=== PATIENT | female | born 1940 | race Two or more races ===

== ENCOUNTER 2024-09-14 11:48 | Emergency (ER) | payer MEDICARE, MEDICAID, SELFPAY ==
[2024-09-14 12:02] VITALS: BP 170/78; PULSE 71; RESP 17; TEMP 36.6; O2SAT 99; BMI 23.4
--- NOTE | 2024-09-14 12:25 | XR_ITS ---
Examination: CT middle inner ear, without contrast. 2-D coronal reconstructions. 2-D sagittal reconstructions. Date and time of exam: September 14, 2024 1324 hours INDICATIONS: Right ear pain beginning 2 days ago CTDI: vol (mGy): 14.3 DLP: (mGycm):164 Technique: Multiple 1.0 mm axial sections of the middle inner ears bilaterally. High-resolution 64 slice scanner utilized. 2-D coronal reconstructions 2-D sagittal reconstructions Low dose protocols were performed. One or more of the following dose reduction techniques were used; automated exposure control, adjustment of the mA and/or KV according to patient size, use of iterative reconstruction technique. Findings: Axial sections of the right demonstrate severely reduced mastoid aeration. Acute right mastoiditis Jugular fossa and carotid canal do not appear remarkable. No deformity of the ossicles. Porus acusticus internus does not exhibit erosion. Cochlear apparatus unremarkable. Semicircular canals normal. Right otitis media. Coronal reconstructions demonstrate no erosion of the scutum. Soft tissue mass in the attic or Prussak's space is depicted Ossicular mass intact. Axial sections of the left demonstrate severely reduced mastoid aeration. Jugular fossa and carotid canal do not appear remarkable. No deformity of the ossicles. Porus acusticus internus does not exhibit erosion. Cochlear apparatus unremarkable. Semicircular canals normal. External auditory canal open Coronal reconstructions demonstrate no erosion of the scutum. No soft tissue mass in the attic or Prussak's space is seen. Ossicular mass intact. Roof of the mastoid air cells appear intact bilaterally. Impression: Bilateral chronic mastoiditis Acute right mastoiditis Right otitis media Soft tissue in the right attic or Prussak's space consistent with acquired cholesteatoma Suggest elective MRI brain follow-up pre and postcontrast
--- NOTE | 2024-09-14 12:28 | PD.EDEAR ---
ED Ear RME/HPI General Chief complaint: Ear Stated complaint: RIGHT EAR PAIN FOR 4 DAYS Time Seen by Provider: 09/14/24 12:00 Arrival date/time: 09/14/24 11:48 RME / HPI RME / HPI Narrative: 84-year-old female patient with significant history of hypertension, was brought in by family for evaluation regarding worsening right ear ache. Patient has been having worsening right earache for the last 4 days, described as pulsating, radiating to the back of the ear. Severity of symptoms moderate. Patient was seen by PCP, and currently taking Augmentin and ciprofloxacin eardrops for the last 2 days. According to the family and patient pain is getting worse. Denies any fever denies any other complaints no medication was taken prior to arrival Related Data Home Medications ?Medication ?Instructions ?Recorded ?Confirmed nitroglycerin 0.3 mg sublingual 0.3 mg buccal Q5MIN PRN Chest Pain 02/11/19 02/11/19 tablet amlodipine 10 mg tablet 10 mg PO QDAY 01/07/22 01/07/22 aspirin 325 mg tablet 325 mg PO QDAY 01/07/22 01/07/22 atorvastatin 80 mg tablet 80 mg PO QDAY 01/07/22 01/07/22 lisinopril 40 mg tablet 40 mg PO QDAY 01/07/22 01/07/22 Previous Rx's ?Medication ?Instructions ?Recorded hydrocodone 5 mg-acetaminophen 300 1 tab PO Q4H PRN pain #10 tabs 02/11/19 mg tablet (Vicodin) acetaminophen 300 mg-codeine 30 mg 1 tab PO TID PRN pain #20 tabs 09/14/24 tablet acetaminophen 300 mg-codeine 30 mg 1 tab PO TID PRN pain #20 tabs 09/14/24 tablet cefdinir 300 mg capsule 300 mg PO BID #14 caps 09/14/24 Allergies Allergy/AdvReac Type Severity Reaction Status Date / Time ibuprofen Allergy Severe Abdominal Verified 09/14/24 11:51 Pain Penicillins Allergy Severe UNKNOWN Verified 09/14/24 11:51 codeine AdvReac Severe ABD PAIN, Verified 09/14/24 11:51 NAUSEA Review of Systems Review of Systems Narrative Review of Systems: Review of system reviewed and within normal limits except mentioned in HPI ED Exam Narrative Physical exam: VITAL SIGNS: Reviewed. GENERAL APPEARANCE: Alert and interactive, follows commands, no acute distress, HEAD AND FACE: Non-traumatic. ENT: PERRL, pink conjunctivitis, eyelid no trauma, Mucous membrane moist. Right tympanic membrane with erythema bulging and tender left tympanic membrane erythema no bulging nontender, tenderness to the posterior auricular area on palpation, no redness noted but mild swelling noted, nonfluctuant, no protrusion of the pinna, no sagging of the ear canal, no skin breakdown noted, no tenderness noted on the left posterior auricular area NECK: Supple, nontender, no nuchal rigidity. CHEST: No tenderness, no crepitus, no paradoxical movement, no retractions. LUNGS: Clear, well ventilated, symmetric, no rales, no wheezing, no ronchi, no stridor, good breath sounds bilaterally. HEART: Regular rate, regular rhythm, no murmur, no gallops. ABDOMEN: Soft, positive bowel sounds, nondistended, no guarding, nontender, no rebound, no masses, RECTAL: Deferred. GENITAL: Deferred. NEUROLOGICAL: Gross motor function intact sensory function intact, Appropriate for age. MUSCULOSKELETAL: low back nontender, full range of motion. EXTREMITIES: Nontender, full range of motion. SKIN: Color pink, dry, no rash, no lacerations, no abrasions, no contusions. LYMPHATICS: Deferred. Course Quality Measures none Orders Category Date Time Status Referral - [facility] Tender Stat Cons 09/14/24 14:59 Active Transfer to another facility [Transfer/Discharge] Discharge 09/14/[address] ear mid-inner wo Stat Exams 09/14/24 12:25 Completed Blood Culture (Lab) Stat Lab 09/14/24 15:15 Received CBC [CBC] Stat Lab 09/14/24 15:15 Completed CMP [Comprehensive Metabolic Panel] Stat Lab 09/14/24 15:15 Completed Lactate (Lactic Acid) Stat Lab 09/14/24 15:15 Completed PTT [Partial Thromboplastin Time] Stat Lab 09/14/24 15:15 Completed Procalcitonin Stat Lab 09/14/24 15:15 Completed HYDROcodone*/APAP 5/325 [[place] 5/325] Med 09/14/24 12:27 Discontinued 1 tab PO X1 ONE HYDROmorphone INJ [Dilaudid Inj] Med 09/14/24 15:21 Discontinued 0.5 mg IVP X1 ONE Ondansetron Inj [Zofran Inj] Med 09/14/24 17:12 Discontinued 4 mg IV X1 ONE cefTAZidime 2 gm Med 09/14/24 14:41 Discontinued Sodium Chloride 0.9% [Ns] 50 ml IV X1 cefTRIAXone/D5w 1gm IV premix [Rocephin/D5w 1gm IV Med 09/14/24 14:39 Discontinued premix] 50 ml IV X1 cloNIDine HCL [Catapres] Med 09/14/24 19:43 Discontinued 0.2 mg PO X1 ONE Vital Signs Vital signs: Vital Signs Temperature 97.8 F 09/14/24 12:02 Pulse Rate 71 09/14/24 12:02 Respiratory Rate 17 09/14/24 12:02 Blood Pressure 170/78 H 09/14/24 12:02 Pulse Oximetry (%) 99 09/14/24 12:02 Oxygen Delivery Method Room Air 09/14/24 12:02 Ear MDM Narrative MDM Narrative:: 84-year-old female patient with significant history of hypertension, was brought in by family for evaluation regarding worsening right ear ache. Patient has been having worsening right earache for the last 4 days, described as pulsating, radiating to the back of the ear. Severity of symptoms moderate. Patient was seen by PCP, and currently taking Augmentin and ciprofloxacin eardrops for the last 2 days. According to the family and patient pain is getting worse. Denies any fever denies any other complaints no medication was taken prior to arrival CT scan of the ears showed acute mastoiditis, with cholesteatoma. Laboratory workup all came back unremarkable. Spoke with transfer center from [facility] and told me that patient is stable to be discharged home with cefdinir and follow-up in the clinic of Dr Pagan this September 21, 2024 at 1300 Patient data External records reviewed:: None Clinical information provided by:: patient Social determinants that could affect healthcare access:: none Patient has the following chronic illnesses:: Hypertension How is presenting disease/condition affected by chronic disease/condition?: no chronic disease Evaluation data The following diagnostics were reviewed and interpreted by me:: lab results and radiology exam(s) Lab and/or radiology exams considered but not ordered:: None Interpretation Summary: CT scan of the ears showed acute mastoiditis, with cholesteatoma. Laboratory workup all came back unremarkable. Medications / Prescriptions Medications or Prescriptions considered but not ordered:: None Medication administrations:: Medication Administration History Discontinued Medications Hydrocodone Bitart/Acetaminophen (Hydrocodone/Apap 5/325 Tablet) 1 tab PO X1 ONE Stop: 09/14/24 12:28 Last Admin: 09/14/24 12:41 Dose: 1 tab Documented By: ALINA Clonidine (Clonidine Hcl 0.1 Mg Tablet) 0.2 mg PO X1 ONE Stop: 09/14/24 19:44 Last Admin: 09/14/24 21:03 Dose: Not Given Documented By: ALINA Non-Admin Reason: Cancelled by Provider Hydromorphone HCl (Hydromorphone Inj 2 Mg/Ml Vial) 0.5 mg IVP X1 ONE Stop: 09/14/24 15:22 Last Admin: 09/14/24 15:26 Dose: 0.5 mg Documented By: STACEY Ceftriaxone Sodium/Dextrose (Rocephin/D5w 1gm Iv Premix) 50 mls @ 100 mls/hr IV X1 ONE Stop: 09/14/24 15:08 Last Admin: 09/14/24 15:53 Dose: Not Given Documented By: STACEY Non-Admin Reason: Cancelled by Provider Ceftazidime 2 gm/ Sodium (Chloride) 50 mls @ 100 mls/hr IV X1 ONE Stop: 09/14/24 15:10 Last Infusion: 09/14/24 16:48 Dose: Infused Documented By: Admin: 09/14/24 15:46 Dose: 100 mls/hr Documented By: STACEY Ondansetron HCl (Ondansetron Inj 2 Mg/Ml Inj 2 Ml) 4 mg IV X1 ONE; Protocol Stop: 09/14/24 17:13 Last Admin: 09/14/24 17:16 Dose: 4 mg Documented By: COURTNEY Extremities edema, Zofran, Dilaudid, and [place] Consultations Consultation(s) initiated? (list below): No Diagnosis Ear Differential Diagnosis: otitis externa, otitis media and other (Acute mastoiditis) Most likely diagnosis given after review of the tests above:: Acute mastoiditis, otitis media Admission Indicated Admission indicated?: not indicated Explain why admission is indicated or not indicated:: Stable for discharge Admission Request Was there a request for admission?: No Disposition Plan Disposition Plan: Discharge Discharge Attestation Discharge Attestation: The patient and all family members were given an opportunity to ask questions and understood the discharge instructions. Discharge instructions specifically effects, indications for sooner follow up or return to the emergency department, and the expected course of current diagnosis. Patient condition: Stable Medical Decision Making MDM Narrative MDM Narrative: 84-year-old female patient with significant history of hypertension, was brought in by family for evaluation regarding worsening right ear ache. Patient has been having worsening right earache for the last 4 days, described as pulsating, radiating to the back of the ear. Severity of symptoms moderate. Patient was seen by PCP, and currently taking Augmentin and ciprofloxacin eardrops for the last 2 days. According to the family and patient pain is getting worse. Denies any fever denies any other complaints no medication was taken prior to arrival Laboratory workup all came back unremarkable. CT scan of the right ear showed acute mastoiditis with cholesteatoma Patient was given ceftazidime IV. Was also given Dilaudid IV. Patient is to be transfer with ENT around. I spoke with transfer center from [facility] who recommends medical management with IV antibiotic for couple of days. Patient does not need surgical intervention at this time according to Dr. Elroy Ivey Lab Data 09/14/24 15:15 09/14/24 15:15 Labs: Lab Results 09/14/24 Range/Units 15:15 WBC 8.4 (3.6-11.0) Thou/mm3 RBC 5.04 (4.00-5.20) Miln/mm3 Hgb 15.6 (12.0-16.0) g/dL Hct 46.2 H (36.0-46.0) % MCV 92 (80-100) fL MCH 31.0 (25.0-35.0) pg MCHC 33.8 (31.0-37.0) g/dl RDW Std Deviation 45.3 (36.4-46.3) fL Plt Count 180 (140-440) Thou/mm3 Neut % (Auto) 44 (37-80) % Lymph % (Auto) 43 (10-50) % Cavalier % (Auto) 7 (0-12) % Eos % (Auto) 6 (0-10) % Baso % (Auto) 1 (0-2.5) % Neut # (Auto) 3.7 (1.8-7.7) Thou/mm3 Lymph # (Auto) 3.6 (1.0-4.8) Thou/mm3 Cavalier # (Auto) 0.6 (0.0-0.8) Thou/mm3 Eos # (Auto) 0.5 (0.0-0.5) Thou/mm3 Baso # (Auto) 0.1 (0.0-0.2) Thou/mm3 Immature Gran # (Auto) 0.02 H (0.00-0.00) Thou/mm3 Absolute Nucleated RBC 0.00 (0.00-0.00) Thou/mm3 Immature Gran % 0 (0-0) % Nucleated RBC % 0 (0) /100 WBC APTT 28.9 (22.0-36.0) Seconds Sodium 136 (136-145) mMol/L Potassium 3.8 (3.4-5.1) mMol/L Chloride 103 (98-107) mMol/L Carbon Dioxide 24.8 (20.0-31.0) mMol/L Anion Gap 8 (7-16) BUN 23 (9-23) mg/dL Creatinine 1.2 (0.6-1.3) mg/dL Estim Creat Clear Calc 24.6 L (>60) mL/min eGFR 44 L (60 - ) See Note BUN/Creatinine Ratio 19 (12-20) Ratio Glucose 99 (74-106) mg/dL Calculated Osmolality 275 (275-295) Lactic Acid 1.2 (0.4-2.0) mMol/L Calcium 10.1 (8.3-10.6) mg/dL Corrected Calcium 10.1 (8.5-10.1) mg/dL Total Bilirubin 1.3 H (0.3-1.2) mg/dL AST 28 (0-34) U/L ALT 26 (10-49) U/L Alkaline Phosphatase 69 (46-116) U/L Total Protein 7.9 (5.7-8.2) gm/dL Albumin 5.3 H (3.4-4.8) gm/dL Globulin 2.6 (2.3-3.5) gm/dL Albumin/Globulin Ratio 2.0 (1.2-2.2) Procalcitonin 0.08 (0.0-0.49) ng/ml Discharge Plan Plan Patient Disposition: HOME (Self Care) Disposition Comment: stable Prescriptions/Referrals Prescriptions/Med Rec: New cefdinir 300 mg capsule 300 mg PO BID Qty: 14 0RF acetaminophen-codeine 300-30 mg tablet 1 tab PO TID PRN (Reason: pain) Qty: 20 0RF acetaminophen-codeine 300-30 mg tablet 1 tab PO TID PRN (Reason: pain) Qty: 20 0RF No Action nitroglycerin 0.3 mg Tablet, Sublingual 0.3 mg BUCCAL Q5MIN PRN (Reason: Chest Pain) hydrocodone-acetaminophen [Vicodin] 5-300 mg tablet 1 tab PO Q4H MDD 3 PRN (Reason: pain) Qty: 10 0RF atorvastatin 80 mg Tablet 80 mg PO QDAY aspirin 325 mg Tablet 325 mg PO QDAY amlodipine 10 mg Tablet 10 mg PO QDAY lisinopril 40 mg Tablet 40 mg PO QDAY Referrals: Arnaldo Linares [Primary Care Provider] - In 1 week Problem List Clinical Impression: Acute mastoiditis, Acute otitis media Patient/Caregiver Discharge Instructions Discharge Activity: activity as tolerated Education Materials: ED Otitis Media Antibiotic ... Additional Instructions: Thank you for the opportunity for serving you today. You are stable for discharged . You are advised to: Follow-up with Dr Pagan this August at [address] [place] [address], telephone #[phone] Return to ED for worsening of symptoms Increase oral fluids Take medication as prescribed Discontinue your Augmentin. Continue your ciprofloxacin otic drop Print Language: Latvian Stand Alone Forms: Maida Award Info., Patient Portal Info Letter JORDAN/LANCE Supervising Physician JORDAN/LANCE Supervising Physician: MD Camilo
[2024-09-14] MEDS: HYDROcodone/APAP 5/325 TABLET 1 TAB PO (12:41)
[2024-09-14 14:55] VITALS: BP 190/84; PULSE 68; RESP 26; TEMP 35.6; O2SAT 96
[2024-09-14 15:24] LABS: Lactate (Lactic Acid) 1.2 mMol/L (0.4-2.0)
[2024-09-14 15:26] LABS: Basophils # (Auto) 0.1 Thou/mm3 (0.0-0.2); Basophils % (Auto) 1 % (0-2.5); Eosinophils # (Auto) 0.5 Thou/mm3 (0.0-0.5); Eosinophils % (Auto) 6 % (0-10); Hematocrit 46.2 % (36.0-46.0); Hemoglobin 15.6 g/dL (12.0-16.0); Immature Granulocytes % (Auto) 0 % (0-0); Immature Granulocytes Auto 0.02 Thou/mm3 (0.00-0.00); Lymphocytes # (Auto) 3.6 Thou/mm3 (1.0-4.8); Lymphocytes % (Auto) 43 % (10-50); Mean Corpuscular HGB Conc 33.8 g/dl (31.0-37.0); Mean Corpuscular Volume 92 fL (80-100); Monocytes # (Auto) 0.6 Thou/mm3 (0.0-0.8); Monocytes % (Auto) 7 % (0-12); Neutrophils # (Auto) 3.7 Thou/mm3 (1.8-7.7); Neutrophils % (Auto) 44 % (37-80); Nucleated Red Blood Cell % 0 /100 WBC (0); Platelet Count 180 Thou/mm3 (140-440); RDW Standard Deviation 45.3 fL (36.4-46.3); Red Blood Count 5.04 Miln/mm3 (4.00-5.20); White Blood Count 8.4 Thou/mm3 (3.6-11.0)
[2024-09-14] MEDS: HYDROmorphone INJ 2 MG/ML VIAL 0.5 MG IVP (15:26)
--- NOTE | 2024-09-14 15:43 | PC.CM ---
Addendum entered by Efrem Hemphill RN 09/14/24 15:55: 1550-Call to [place] [facility] [place], provided clinicals and contact number for ER provider, she will connect with him and present case, awaiting response at this time. Original Note: 1521- Received call from Mirella Beck NP requesting transfer for ENT services, clinicals sent to [facility], [facility], and [facility]. Packet created and disc with imaging studies placed in packet.
[2024-09-14 15:46] LABS: Partial Thromboplastin Time 28.9 Seconds (22.0-36.0)
[2024-09-14] MEDS: cefTAZidime 2 GM in SODIUM CHLORIDE 0.9% 50 ML IV (15:46)
[2024-09-14 15:54] LABS: Alanine Aminotransferase 26 U/L (10-49); Albumin, Serum 5.3 gm/dL (3.4-4.8); Alkaline Phosphatase 69 U/L (46-116); Anion Gap 8 (7-16); Aspartate Amino Transferase 28 U/L (0-34); BUN/Creatinine Ratio 19 Ratio (12-20); Bilirubin,Total 1.3 mg/dL (0.3-1.2); Blood Urea Nitrogen 23 mg/dL (9-23); Calcium 10.1 mg/dL (8.3-10.6); Calcium (Corrected) 10.1 mg/dL (8.5-10.1); Carbon Dioxide 24.8 mMol/L (20.0-31.0); Chloride 103 mMol/L (98-107); Creatinine (Component) 1.2 mg/dL (0.6-1.3); Estimated Creatinine Clearance 24.6 mL/min (>60); Globulin 2.6 gm/dL (2.3-3.5); Glucose 99 mg/dL (74-106); Osmolality,Calculated 275 (275-295); Potassium 3.8 mMol/L (3.4-5.1); Procalcitonin 0.08 ng/ml (0.0-0.49); Sodium 136 mMol/L (136-145); Total Protein 7.9 gm/dL (5.7-8.2); eGFR 44 See Note
[2024-09-14] MEDS: ONDANSETRON INJ 2 MG/ML INJ 2 ML 4 MG IV (17:16)
--- NOTE | 2024-09-14 19:14 | PC.NURSE ---
SANDY FROM [facility] CALLED TO SPEAK WITH PROVIDER
--- NOTE | 2024-09-14 19:20 | PC.NURSE ---
JOE FROM [facility] CALLED TO FOLLOW UP ON STILL NEEDING TRANSFER, I TOLD THEM THAT YES WE WERE. SHE STATED THAT THEY HAVE HIGH CALL VOLUME AND THE TRANSFER NURSE WILL GET BACK TO US SOON POSSIBLE
--- NOTE | 2024-09-14 19:34 | PC.NURSE ---
Spoke with Karen from [facility], they do not have ENT services
[2024-09-14 19:48] VITALS: BP 144/61; PULSE 71; RESP 17; TEMP 36.5; O2SAT 95
[2024-09-14 20:21] VITALS: BP 109/50; PULSE 72; RESP 17; O2SAT 95
--- NOTE | 2024-09-14 20:30 | PC.NURSE ---
Pt resting quietly. states pain is mild. denies need for paain med.
--- NOTE | 2024-09-14 21:33 | EVENTNT_ITS ---
Documentation for date of: 09/14/24 Event Note Event Note: Patient is vietnamese speaking and interaction facilitated by register[employer] healthcare interpretor. Ms. Styles is an 84-year-old female with past medical history significant for bronchial asthma and complete heart block s/p pacemaker insertion [2018] presenting today with a chief complaint of bilateral ear pain worse in the right. Patient says that right [employer] acutely worsened about 2 days ago and has since been constant, associated with hearing loss and 10/10 pain. Yesterday she saw her PCP who prescribed p.o. Augmentin and ciprofloxacin eardrops. However her pain did not decrease after only 1 day of antibiotics. Therefore her family brought her into the ED for evaluation today. On arrival to the ED her vitals were within normal limits and her labs only significant for BUN 23, CR 1.2 [CKD stage IIIb] On exam both patient's ears were examined, tympanic membrane appeared white, fibrous and changes suggestive of chronic recurrent otitis media with effusion possible aspect of cholesteatoma. On orbital CT findings consistent with acute right mastoiditis as well as decreased left mastoid aeration. Initially the ED consulted us for admission for IV antibiotics according to curbside recommendations from ENT surgeon at [facility]. We suggested the contact Dr. Benites, ENT surgeon first to see if he would agree to consult on the patient, if he agrees and deemed the patient necessary for IV antibiotics we would admit. ED was unsuccessful in contacting Dr Benites, however they were eventually able to get in contact with ENT surgeon at [facility] who recommended outpatient p.o. antibiotics as well as pain control. We agree with the above-stated plan and if patient experiences any further deterioration of condition, persistent or worsening symptoms we recommend she either call her primary care doctor, shashi 911 or present to the emergency department if necessary. Plan of care discussed with Attending Dr. Mallika Dunaway MD PGY 1 I discussed the assessment and plan with the medicine team. I reviewed available medical records, imaging studies, laboratory results. I agree with the above subjective data, objective findings, assessment and plan END was contacted at [facility] who recommended to dc patient on po abxs apparently, so pt was dced from the ED
[2024-09-14 22:10] VITALS: BP 157/77; PULSE 79; RESP 17; TEMP 36.6; O2SAT 97
--- NOTE | 2024-09-15 07:20 | PC.CM ---
I reviewed notes from yesterday and patient was discharged to follow up as outpatient. Patient was not transferred out.
== END 2024-09-14 22:13 | disposition home or self-care (01) ==
PROVIDERS: Nurse Practitioner Family; Emergency Provider Emergency Medicine; PCP Physician Assistant
DX: H70.001 Acute mastoiditis without complications, right ear (principal); I10 Essential (primary) hypertension
CPT/HCPCS: 36415; 70480; 80053; 83605; 84145; 85025; 85730; 87040; 96365; 96375; 99284; J0713; J2405; J3490; A9270

== ENCOUNTER → 2025-01-23 | Outpatient (CLI) | payer MEDICARE, MEDICAID, SELFPAY ==
[2025-01-23 11:58] LABS: Basophils % (Auto) 1 % (0-2.5); Eosinophils # (Auto) 0.3 Thou/mm3 (0.0-0.5); Eosinophils % (Auto) 5 % (0-10); Hemoglobin 14.8 g/dL (12.0-16.0); Immature Granulocytes % (Auto) 0 % (0-0); Immature Granulocytes Auto 0.01 Thou/mm3 (0.00-0.00); Lymphocytes # (Auto) 2.5 Thou/mm3 (1.0-4.8); Lymphocytes % (Auto) 39 % (10-50); Mean Corpuscular HGB Conc 34.4 g/dl (31.0-37.0); Mean Corpuscular Volume 90 fL (80-100); Monocytes # (Auto) 0.6 Thou/mm3 (0.0-0.8); Monocytes % (Auto) 9 % (0-12); Neutrophils # (Auto) 3.1 Thou/mm3 (1.8-7.7); Neutrophils % (Auto) 47 % (37-80); Nucleated Red Blood Cell % 0 /100 WBC (0); Platelet Count 198 Thou/mm3 (140-440); RDW Standard Deviation 41.9 fL (36.4-46.3); Red Blood Count 4.77 Miln/mm3 (4.00-5.20); White Blood Count 6.5 Thou/mm3 (3.6-11.0)
[2025-01-23 12:06] LABS: Partial Thromboplastin Time 28.9 Seconds (22.0-36.0); Prothrombin Time 11.4 Seconds (9.0-12.2)
[2025-01-23 12:09] LABS: Anion Gap 12 (7-16); BUN/Creatinine Ratio 24 Ratio (12-20); Blood Urea Nitrogen 31 mg/dL (9-23); Calcium 9.4 mg/dL (8.3-10.6); Carbon Dioxide 24.1 mMol/L (20.0-31.0); Chloride 108 mMol/L (98-107); Creatinine (Component) 1.3 mg/dL (0.6-1.3); Glucose 113 mg/dL (74-106); Osmolality,Calculated 294 (275-295); Potassium 4.1 mMol/L (3.4-5.1); Sodium 144 mMol/L (136-145); eGFR 40 See Note
== END | disposition home or self-care (01) ==
LOC: COPL 11:02
PROVIDERS: PCP Physician Assistant; Referring Provider Physician Assistant; Visit Provider Physician Assistant
DX: I25.10 Atherosclerotic heart disease of native coronary artery without angina pectoris (principal); I48.91 Unspecified atrial fibrillation
CPT/HCPCS: 36415; 80048; 85025; 85610; 85730